=== PATIENT | female | born 1935 | race African-American/Black ===

== ENCOUNTER 2022-07-06 13:11 | Emergency (ER) | payer MEDICARE, MEDICAID ==
[~2022-07-06] VITALS: Ht 170.2 cm; Wt 92.0 kg
[2022-07-06] MEDS ORDERED: MORPHINE SULFATE 4 MG/ML CPJ (NOT FOR IM USE) IV NR (16:57)
[2022-07-06] MEDS ORDERED: ONDANSETRON HCL 4MG/2ML INJ IV STA (16:57)
[2022-07-06] MEDS ORDERED: MORPHINE SULFATE 4 MG/ML CPJ (NOT FOR IM USE) IV STA (16:57)
[2022-07-06] MEDS ORDERED: ONDANSETRON HCL 4MG/2ML INJ IV NR (16:57)
[2022-07-06] MEDS ORDERED: SODIUM CHLORIDE 0.9% 1,000 ML IV ONE (17:00)
[2022-07-06 17:22] LABS: CLARITY URINE CLEAR (CLEAR); COLOR URINE YELLOW (YELLOW); KETONES URINE NEGATIVE (NEGATIVE); LEUKOCYTE ESTERASE URINE TRACE (NEGATIVE); NITRITE URINE NEGATIVE (NEGATIVE); OCCULT BLOOD URINE NEGATIVE (NEGATIVE); PROTEIN URINE NEGATIVE (NEGATIVE); SPECIFIC GRAVITY URINE 1.005 (1.005-1.030); UROBILINOGEN URINE 0.2 E.U./dL (0.2-1.0)
[2022-07-06 17:45] LABS: CHLORIDE 97 mEq/L (98-107)
[2022-07-06 18:05] LABS: BASOPHILS % 0.6 % (0.0-2.0); EOSINOPHILS % 0.2 % (0.0-5.0); HEMATOCRIT. 38.1 % (36.0-48.0); HEMOGLOBIN. 12.6 g/dL (12.0-16.0); MEAN CORPUSCULAR HEMOGLOBIN 30.2 pg (28.0-32.0); MEAN PLATELET VOLUME 7.5 fl (7.4-10.4); MONOCYTES % 9.8 % (2.0-8.0); NEUTROPHILS % 62.4 % (40.0-76.0); PLATELET 213 x1000/uL (130-400); RED BLOOD CELL COUNT 4.19 mill/uL (4.2-5.4); RED CELL DISTRIBUTION WIDTH 13.4 % (11.6-14.6)
[2022-07-06] MEDS ORDERED: CEFTRIAXONE 1 G PREMIX 50 ML IV ONE (18:15)
[2022-07-06] MEDS ORDERED: HYDRALAZINE 20MG/ML VIAL IV ONE (18:15)
[2022-07-06] MEDS ORDERED: TOPUD MT (19:33)
[2022-07-06] MEDS ORDERED: CEPH500C2 MT (19:33)
[2022-07-06 20:00] VITALS: BP 131/59
== END 2022-07-06 20:50 | disposition home or self-care (01) ==
LOC: ER 13:30
DX: R10.31 Right lower quadrant pain (principal); N39.0 Urinary tract infection, site not specified; R11.0 Nausea; I10 Essential (primary) hypertension; Z90.710 Acquired absence of both cervix and uterus
CPT/HCPCS: 36415; 71045; 74176; 80053; 81003; 83690; 84484; 85025; 93005; 96365; 96375; 99285; J0360; J0696; J2405; J7030

== ENCOUNTER 2022-07-27 09:58 | Emergency (ER) | payer MEDICARE, MEDICAID ==
[~2022-07-27] VITALS: Ht 167.6 cm; Wt 90.0 kg
[~2022-07-27 09:58] MED LIST: CEPH500C2 MT; TOPUD MT
[2022-07-27] MEDS ORDERED: VISCOUS LIDOCAINE 2% 15 ML UDC MM STA (10:42)
[2022-07-27] MEDS ORDERED: ONDANSETRON HCL 4MG TABLET PO ONE (10:45)
[2022-07-27] MEDS ORDERED: MAGNESIUM/ALUMINUM HYDROXIDE/SIMETHICONE 30ML UDC PO ONE (10:45)
[2022-07-27] MEDS ORDERED: FAMOTIDINE 20MG TABLET PO ONE (10:45)
[2022-07-27 11:32] LABS: CLARITY URINE CLEAR (CLEAR); COLOR URINE YELLOW (YELLOW); KETONES URINE NEGATIVE (NEGATIVE); LEUKOCYTE ESTERASE URINE NEGATIVE (NEGATIVE); NITRITE URINE NEGATIVE (NEGATIVE); OCCULT BLOOD URINE NEGATIVE (NEGATIVE); PROTEIN URINE NEGATIVE (NEGATIVE); SPECIFIC GRAVITY URINE 1.005 (1.005-1.030); UROBILINOGEN URINE 0.2 E.U./dL (0.2-1.0)
[2022-07-27 12:24] LABS: EOSINOPHILS % 0.4 % (0.0-5.0); HEMATOCRIT. 38.2 % (36.0-48.0); HEMOGLOBIN. 12.8 g/dL (12.0-16.0); MEAN CORPUSCULAR HEMOGLOBIN 30.1 pg (28.0-32.0); MEAN CORPUSCULAR VOLUME 90.1 fL (81.0-99.0); MONOCYTES % 11.3 % (2.0-8.0); NEUTROPHILS % 63.3 % (40.0-76.0); RED BLOOD CELL COUNT 4.24 mill/uL (4.2-5.4); RED CELL DISTRIBUTION WIDTH 13.8 % (11.6-14.6)
[2022-07-27 12:38] LABS: CHLORIDE 104 mEq/L (98-107)
[2022-07-27] MEDS ORDERED: ONDANSETRON HCL 4MG TABLET PO NR (12:45)
[2022-07-27] MEDS ORDERED: MAGNESIUM/ALUMINUM HYDROXIDE/SIMETHICONE 30ML UDC PO NR (12:45)
[2022-07-27] MEDS ORDERED: VISCOUS LIDOCAINE 2% 15 ML UDC MM NR (12:45)
[2022-07-27] MEDS ORDERED: FAMOTIDINE 20MG TABLET PO NR (12:45)
[2022-07-27] MEDS ORDERED: FEO PR (16:28)
[2022-07-27] MEDS ORDERED: LACT1CAP78 MT (16:28)
[2022-07-27] MEDS ORDERED: FAMO40TA70 MT (16:28)
[2022-07-27] MEDS ORDERED: MAG-55 MT (16:28)
[2022-07-27] MEDS ORDERED: POLY119P2 MT (16:28)
[2022-07-27 16:35] VITALS: BP 145/58
== END 2022-07-27 17:02 | disposition home or self-care (01) ==
LOC: ER 10:49
DX: K21.9 Gastro-esophageal reflux disease without esophagitis (principal); K59.00 Constipation, unspecified; I10 Essential (primary) hypertension; Z90.710 Acquired absence of both cervix and uterus; Z79.899 Other long term (current) drug therapy
CPT/HCPCS: 36415; 74176; 80053; 81003; 83690; 85025; 93005; 99285; Q0162

== ENCOUNTER 2022-09-16 17:56 | Inpatient (IN) | payer MEDICARE, MEDICAID ==
[~2022-09-16] VITALS: Ht 167.6 cm; Wt 88.9 kg
[~2022-09-16 17:56] MED LIST changes: +FAMO40TA70 MT; +FEO PR; +LACT1CAP78 MT; +MAG-55 MT; +POLY119P2 MT
[2022-09-16] MEDS ORDERED: METOPROLOL TARTRATE 5MG/5ML VIAL IV SCH (19:00)
[2022-09-16 19:08] LABS: BASOPHILS % 0.5 % (0.0-2.0); EOSINOPHILS % 0.5 % (0.0-5.0); HEMATOCRIT. 34.8 % (36.0-48.0); HEMOGLOBIN. 11.5 g/dL (12.0-16.0); LYMPHOCYTES % 29.6 % (20.0-50.0); MEAN CORPUSCULAR VOLUME 90.6 fL (81.0-99.0); MEAN PLATELET VOLUME 7.5 fl (7.4-10.4); MONOCYTES % 5.8 % (2.0-8.0); NEUTROPHILS % 63.6 % (40.0-76.0); PLATELET 240 x1000/uL (130-400); RED BLOOD CELL COUNT 3.84 mill/uL (4.2-5.4)
[2022-09-16] MEDS ORDERED: GUAIFENESIN 200MG/10ML SUGAR FREE UDC PO PRN (22:45)
[2022-09-16] MEDS ORDERED: IPRATROPIUM/ALBUTEROL 0.5-3(2.5)MG/3ML NEB HHN PRN (22:45)
[2022-09-16] MEDS ORDERED: ACETAMINOPHEN 325MG TABLET PO PRN (22:45)
[2022-09-16] MEDS ORDERED: ACETAMINOPHEN 650MG SUPP PR PRN ×2 (22:45)
[2022-09-17] MEDS ORDERED: ROSU20TA2 (00:35)
[2022-09-17] MEDS ORDERED: ALLO100T PO (00:35)
[2022-09-17] MEDS ORDERED: OLME40TA18 PO (00:35)
[2022-09-17] MEDS ORDERED: AMLO5TAB88 PO (00:35)
[2022-09-17] MEDS: HYDROCODONE/ACETAMINOPHEN 5/325MG TABLET PO PRN ×3 (00:40→12:42)
[2022-09-17 00:45] VITALS: BP 143/70
[2022-09-17 04:00] VITALS: BP 128/74
[2022-09-17 07:43] LABS: BASOPHILS % 0.5 % (0.0-2.0); EOSINOPHILS % 0.4 % (0.0-5.0); HEMATOCRIT. 34.2 % (36.0-48.0); HEMOGLOBIN. 11.3 g/dL (12.0-16.0); LYMPHOCYTES % 31.8 % (20.0-50.0); MEAN CORPUSCULAR HEMOGLOBIN 30.3 pg (28.0-32.0); MEAN CORPUSCULAR VOLUME 91.7 fL (81.0-99.0); MEAN PLATELET VOLUME 7.7 fl (7.4-10.4); MONOCYTES % 10.5 % (2.0-8.0); NEUTROPHILS % 56.8 % (40.0-76.0); PLATELET 232 x1000/uL (130-400); RED BLOOD CELL COUNT 3.73 mill/uL (4.2-5.4); RED CELL DISTRIBUTION WIDTH 16.2 % (11.6-14.6)
[2022-09-17] MEDS ORDERED: PNEUMOCOCCAL 23-VAL P-SAC VAC 0.5 ML IM ONE (10:00)
[2022-09-17 12:00] VITALS: BP 130/62
[2022-09-17 16:00] VITALS: BP 125/73
[2022-09-17] MEDS ORDERED: ENOXAPARIN 100MG/ML SYR SUBCUT NR (17:00)
[2022-09-17] MEDS: ONDANSETRON HCL 4MG/2ML INJ IV PRN (17:03)
[2022-09-17] MEDS ORDERED: NALOXONE HCL 0.4MG/ML VIAL IV PRN (19:30)
[2022-09-17 20:00] VITALS: BP 86/44
[2022-09-17 22:09] LABS: INR 1.3; PROTHROMBIN TIME 13.6 sec (9.6-11.0)
[2022-09-18] VITALS (45 sets, daily range): BP systolic 74–160; BP diastolic 36–76
[2022-09-18 01:01] LABS: HDL CHOLESTEROL 49 mg/dL (40-59); LDL CHOLESTEROL 83 mg/dL (5-100)
[2022-09-18 06:14] LABS: CHLORIDE 107 mEq/L (98-107)
[2022-09-18 06:46] LABS: BASOPHILS % 0.2 % (0.0-2.0); HEMATOCRIT. 36.6 % (36.0-48.0); HEMOGLOBIN. 11.7 g/dL (12.0-16.0); LYMPHOCYTES % 14.5 % (20.0-50.0); MEAN CORPUSCULAR HEMOGLOBIN 29.9 pg (28.0-32.0); MEAN CORPUSCULAR VOLUME 93.5 fL (81.0-99.0); MEAN PLATELET VOLUME 7.7 fl (7.4-10.4); MONOCYTES % 7.4 % (2.0-8.0); NEUTROPHILS % 77.9 % (40.0-76.0); PLATELET 180 x1000/uL (130-400); RED BLOOD CELL COUNT 3.91 mill/uL (4.2-5.4); RED CELL DISTRIBUTION WIDTH 17.1 % (11.6-14.6)
[2022-09-18 09:45] LABS: CHLORIDE 106 mEq/L (98-107)
[2022-09-18] MEDS ORDERED: MAGNESIUM HYDROXIDE 400MG/5ML 30ML UDC PO NR (10:30)
[2022-09-18 10:37] LABS: CREATINE KINASE 75 IU/L (26-192); HDL CHOLESTEROL 46 mg/dL (40-59); LDL CHOLESTEROL 93 mg/dL (5-100)
[2022-09-18] MEDS ORDERED: ENOXAPARIN 100MG/ML SYR SUBCUT SCH (11:00)
[2022-09-18] MEDS: HYDROCODONE/ACETAMINOPHEN 5/325MG TABLET PO PRN (12:08)
[2022-09-18] MEDS ORDERED: PHENYLEPHRINE 100 MG in DEXT 5% WATER 240 ML IV PRN (12:15)
[2022-09-18] MEDS ORDERED: IOHEXOL-350 100 ML BOTTLE ONE (12:27)
[2022-09-18] MEDS ORDERED: ALTEPLASE 100MG/VIAL IV NR (15:00)
[2022-09-18] MEDS: DOPAMINE 400MG/250ML PREMIX 250 ML IV PRN (15:31)
[2022-09-18 20:22] LABS: BG BASE EXCESS -3.1 mmol/L (-2.0-2.0); BG CARBOXYHEMOGLOBIN 0.3 % (0.5-1.5); BG DEOXYHEMOGLOBIN 9.5 % (0.0-5.0); BG FRACTION INSPIRED OXYGEN 100; BG HCO3 ACT 22.2 mmol/L (22.0-26.0); BG METHEMOGLOBIN 0.3 % (0.0-1.5); BG OXYGEN SATURATION 90.4 % (92.0-98.5); BG OXYHEMOGLOBIN 89.9 % (94.0-97.0); BG PH 7.352 (7.350-7.450); BG PO2 65.6 mmHg (75.0-100.0); BG SAMPLE SITE RIGHT RADIAL; BG TOTAL HEMOGLOBIN 12.2 g/dL (12.0-18.0); BG VENT MODE MASK - NRB
[2022-09-19] VITALS (97 sets, daily range): BP systolic 47–134; BP diastolic 24–81
[2022-09-19 06:26] LABS: BASOPHILS % 0.2 % (0.0-2.0); HEMATOCRIT. 36.1 % (36.0-48.0); HEMOGLOBIN. 11.5 g/dL (12.0-16.0); LYMPHOCYTES % 12.9 % (20.0-50.0); MEAN CORPUSCULAR HEMOGLOBIN 29.9 pg (28.0-32.0); MEAN CORPUSCULAR VOLUME 93.8 fL (81.0-99.0); MEAN PLATELET VOLUME 7.7 fl (7.4-10.4); MONOCYTES % 12.9 % (2.0-8.0); PLATELET 205 x1000/uL (130-400); RED BLOOD CELL COUNT 3.85 mill/uL (4.2-5.4); RED CELL DISTRIBUTION WIDTH 17.3 % (11.6-14.6)
[2022-09-19] MEDS: DOPAMINE 400MG/250ML PREMIX 250 ML IV PRN (09:04)
[2022-09-19] MEDS ORDERED: HEPARIN 25,000 UNITS PREMIX 250 ML IV SCH (10:30)
[2022-09-19] MEDS ORDERED: HEPARIN 80 UNITS/KG BOLUS IV SCH (11:15)
[2022-09-19] MEDS ORDERED: HEPARIN BOLUS PRN aPTT 37-44 IV (11:15)
[2022-09-19] MEDS: HEPARIN 25,000 UNITS PREMIX 250 ML IV SCH (15:19)
[2022-09-19] MEDS: HYDROCODONE/ACETAMINOPHEN 5/325MG TABLET PO PRN (17:32)
[2022-09-19] MEDS ORDERED: HEPARIN 5000 UNITS/ML VIAL IV SCH (19:30)
[2022-09-19] MEDS ORDERED: HEPARIN 5000 UNITS/ML VIAL IV PRN ×2 (19:30)
[2022-09-19] MEDS: HEPARIN BOLUS PRN aPTT <36 IV (20:37)
[2022-09-20] VITALS (91 sets, daily range): BP systolic 66–141; BP diastolic 28–77
[2022-09-20 03:27] LABS: BASOPHILS % 0.2 % (0.0-2.0); EOSINOPHILS % 0.4 % (0.0-5.0); HEMATOCRIT. 32.9 % (36.0-48.0); HEMOGLOBIN. 10.8 g/dL (12.0-16.0); LYMPHOCYTES % 13.2 % (20.0-50.0); MEAN CORPUSCULAR HEMOGLOBIN 29.8 pg (28.0-32.0); MEAN CORPUSCULAR VOLUME 90.6 fL (81.0-99.0); MEAN PLATELET VOLUME 7.8 fl (7.4-10.4); MONOCYTES % 9.7 % (2.0-8.0); NEUTROPHILS % 76.5 % (40.0-76.0); PLATELET 197 x1000/uL (130-400); RED BLOOD CELL COUNT 3.63 mill/uL (4.2-5.4); RED CELL DISTRIBUTION WIDTH 16.9 % (11.6-14.6)
[2022-09-20] MEDS: DOPAMINE 400MG/250ML PREMIX 250 ML IV PRN ×2 (03:36→17:20)
[2022-09-20 04:06] LABS: CHLORIDE 102 mEq/L (98-107)
[2022-09-20 04:20] LABS: CREATINE KINASE 498 IU/L (26-192)
[2022-09-20] MEDS: DOCUSATE SODIUM 100MG CAPSULE PO PRN ×2 (09:07→17:20)
[2022-09-20] MEDS: HYDROCODONE/ACETAMINOPHEN 5/325MG TABLET PO PRN ×3 (09:08→22:18)
[2022-09-20 09:33] LABS: CLARITY URINE CLOUDY (CLEAR); COLOR URINE YELLOW (YELLOW); KETONES URINE NEGATIVE (NEGATIVE); LEUKOCYTE ESTERASE URINE TRACE (NEGATIVE); NITRITE URINE NEGATIVE (NEGATIVE); OCCULT BLOOD URINE 3+ (NEGATIVE); PROTEIN URINE TRACE (NEGATIVE); SPECIFIC GRAVITY URINE 1.012 (1.005-1.030); UROBILINOGEN URINE 0.2 E.U./dL (0.2-1.0)
[2022-09-20] MEDS: HEPARIN 25,000 UNITS PREMIX 250 ML IV SCH (10:42)
[2022-09-20 11:18] LABS: BG BASE EXCESS -5.9 mmol/L (-2.0-2.0); BG DEOXYHEMOGLOBIN 6.7 % (0.0-5.0); BG FRACTION INSPIRED OXYGEN 100; BG HCO3 ACT 18.6 mmol/L (22.0-26.0); BG METHEMOGLOBIN 0.2 % (0.0-1.5); BG OXYGEN SATURATION 93.3 % (92.0-98.5); BG OXYHEMOGLOBIN 93.1 % (94.0-97.0); BG PCO2 33.4 mmHg (35.0-45.0); BG PH 7.364 (7.350-7.450); BG PO2 72.5 mmHg (75.0-100.0); BG SAMPLE SITE LEFT BRACHIAL; BG TOTAL HEMOGLOBIN 11.2 g/dL (12.0-18.0); BG VENT MODE MASK - NRB
[2022-09-21] VITALS (98 sets, daily range): BP systolic 82–149; BP diastolic 30–90
[2022-09-21] MEDS: ACETAMINOPHEN 325MG TABLET PO PRN (00:51)
[2022-09-21] MEDS: DOPAMINE 400MG/250ML PREMIX 250 ML IV PRN ×2 (05:30→17:12)
[2022-09-21 05:33] LABS: HEMATOCRIT. 34.1 % (36.0-48.0); HEMOGLOBIN. 11.4 g/dL (12.0-16.0); MEAN CORPUSCULAR HEMOGLOBIN 30.1 pg (28.0-32.0); MEAN CORPUSCULAR VOLUME 90.4 fL (81.0-99.0); MEAN PLATELET VOLUME 8.1 fl (7.4-10.4); PLATELET 233 x1000/uL (130-400); RED BLOOD CELL COUNT 3.77 mill/uL (4.2-5.4); RED CELL DISTRIBUTION WIDTH 16.3 % (11.6-14.6)
[2022-09-21 06:17] LABS: PHOSPHORUS 3.9 mg/dL (2.5-4.9)
[2022-09-21] MEDS: MORPHINE SULFATE 4 MG/ML CPJ (NOT FOR IM USE) IV PRN (08:37)
[2022-09-21] MEDS: HEPARIN 25,000 UNITS PREMIX 250 ML IV SCH (08:42)
[2022-09-21 09:25] LABS: PLATELET ESTIMATE NORMAL
[2022-09-22] VITALS (98 sets, daily range): BP systolic 63–146; BP diastolic 26–78
[2022-09-22 04:55] LABS: HEMOGLOBIN. 10.6 g/dL (12.0-16.0); MEAN CORPUSCULAR HEMOGLOBIN 30.2 pg (28.0-32.0); MEAN CORPUSCULAR VOLUME 91.2 fL (81.0-99.0); MEAN PLATELET VOLUME 7.5 fl (7.4-10.4); PLATELET 186 x1000/uL (130-400); RED BLOOD CELL COUNT 3.51 mill/uL (4.2-5.4); RED CELL DISTRIBUTION WIDTH 16.5 % (11.6-14.6)
[2022-09-22] MEDS: HEPARIN 25,000 UNITS PREMIX 250 ML IV SCH (04:58)
[2022-09-22 05:10] LABS: PHOSPHORUS 4.2 mg/dL (2.5-4.9)
[2022-09-22] MEDS: DOPAMINE 400MG/250ML PREMIX 250 ML IV PRN ×2 (05:12→17:37)
[2022-09-22] MEDS: HEPARIN BOLUS PRN aPTT <36 IV (07:07)
[2022-09-22] MEDS: MORPHINE SULFATE 4 MG/ML CPJ (NOT FOR IM USE) IV PRN (09:00)
[2022-09-22 10:13] LABS: PLATELET ESTIMATE NORMAL
[2022-09-22] MEDS: MIDODRINE HCL 5MG TABLET PO SCH ×3 (10:43→17:36)
[2022-09-23] VITALS (100 sets, daily range): BP systolic 56–154; BP diastolic 22–73
[2022-09-23] MEDS: HEPARIN 25,000 UNITS PREMIX 250 ML IV SCH (03:07)
[2022-09-23 04:38] LABS: HEMATOCRIT. 27.5 % (36.0-48.0); HEMOGLOBIN. 9.1 g/dL (12.0-16.0); MEAN CORPUSCULAR HEMOGLOBIN 29.9 pg (28.0-32.0); MEAN CORPUSCULAR VOLUME 90.1 fL (81.0-99.0); MEAN PLATELET VOLUME 7.5 fl (7.4-10.4); PLATELET 183 x1000/uL (130-400); RED BLOOD CELL COUNT 3.06 mill/uL (4.2-5.4); RED CELL DISTRIBUTION WIDTH 16.3 % (11.6-14.6)
[2022-09-23 05:25] LABS: PHOSPHORUS 3.9 mg/dL (2.5-4.9)
[2022-09-23] MEDS: DOPAMINE 400MG/250ML PREMIX 250 ML IV PRN (06:54)
[2022-09-23] MEDS: MIDODRINE HCL 5MG TABLET PO SCH ×3 (08:45→17:10)
[2022-09-23] MEDS: DILTIAZEM HCL 60MG TABLET PO SCH ×3 (10:25→17:03)
[2022-09-23 10:55] LABS: PLATELET ESTIMATE NORMAL
[2022-09-23] MEDS ORDERED: ENOXAPARIN 80MG/0.8ML SYR SUBCUT SCH ×2 (13:00→15:00)
[2022-09-23] MEDS: HEPARIN 25,000 UNITS PREMIX 250 ML IV PRN ×2 (13:28→17:34)
[2022-09-23] MEDS ORDERED: HEPARIN BOLUS PRN aPTT <36 IV (13:30)
[2022-09-23] MEDS ORDERED: HEPARIN BOLUS PRN aPTT 37-44 IV (13:30)
[2022-09-23] MEDS: DOCUSATE SODIUM 100MG CAPSULE PO PRN (17:10)
[2022-09-23] MEDS: ACETAMINOPHEN 325MG TABLET PO PRN (17:10)
[2022-09-23] MEDS: MAGNESIUM/ALUMINUM HYDROXIDE/SIMETHICONE 30ML UDC PO PRN (17:10)
[2022-09-23] MEDS: PHENYLEPHRINE 100 MG in DEXT 5% WATER 240 ML IV PRN ×2 (17:34→20:19)
[2022-09-24] VITALS (93 sets, daily range): BP systolic 41–158; BP diastolic 14–82
[2022-09-24] MEDS: DILTIAZEM HCL 60MG TABLET PO SCH ×2 (00:26→05:44)
[2022-09-24] MEDS: ACETAMINOPHEN 325MG TABLET PO PRN (01:05)
[2022-09-24 05:16] LABS: BASOPHILS % 0.3 % (0.0-2.0); EOSINOPHILS % 1.6 % (0.0-5.0); HEMATOCRIT. 24.3 % (36.0-48.0); HEMOGLOBIN. 8.1 g/dL (12.0-16.0); LYMPHOCYTES % 14.5 % (20.0-50.0); MEAN CORPUSCULAR HEMOGLOBIN 29.8 pg (28.0-32.0); MEAN CORPUSCULAR VOLUME 89.3 fL (81.0-99.0); MEAN PLATELET VOLUME 7.8 fl (7.4-10.4); MONOCYTES % 13.5 % (2.0-8.0); NEUTROPHILS % 70.1 % (40.0-76.0); PLATELET 271 x1000/uL (130-400); RED BLOOD CELL COUNT 2.72 mill/uL (4.2-5.4)
[2022-09-24 05:30] LABS: PHOSPHORUS 3.9 mg/dL (2.5-4.9)
[2022-09-24] MEDS: MIDODRINE HCL 5MG TABLET PO SCH ×4 (08:38→18:30)
[2022-09-24] MEDS: HEPARIN 25,000 UNITS PREMIX 250 ML IV PRN (08:45)
[2022-09-24] MEDS ORDERED: MAGNESIUM 2 G PREMIX 50 ML IV NR (09:00)
[2022-09-24] MEDS: NOREPINEPHRINE 32 MG in DEXT 5% WATER 218 ML IV PRN (09:13)
[2022-09-24] MEDS ORDERED: CEFTRIAXONE 1 G PREMIX 50 ML IV SCH (09:15)
[2022-09-24] MEDS: CEFTRIAXONE 1,000 MG in DEXTROSE 5% WATER 50 ML IV SCH (10:45)
[2022-09-24] MEDS ORDERED: IOHEXOL-350 100 ML BOTTLE ONE (12:21)
[2022-09-25] VITALS (92 sets, daily range): BP systolic 85–164; BP diastolic 32–113
[2022-09-25] MEDS: HEPARIN 25,000 UNITS PREMIX 250 ML IV PRN (01:04)
[2022-09-25] MEDS: ACETAMINOPHEN 325MG TABLET PO PRN ×2 (02:20→21:39)
[2022-09-25] MEDS: MORPHINE SULFATE 2 MG/ML CPJ (NOT FOR IM USE) IV PRN (04:22)
[2022-09-25 06:09] LABS: BASOPHILS % 0.2 % (0.0-2.0); EOSINOPHILS % 2.2 % (0.0-5.0); HEMATOCRIT. 24.5 % (36.0-48.0); HEMOGLOBIN. 8.4 g/dL (12.0-16.0); LYMPHOCYTES % 10.2 % (20.0-50.0); MEAN CORPUSCULAR HEMOGLOBIN 30.3 pg (28.0-32.0); MEAN CORPUSCULAR VOLUME 88.5 fL (81.0-99.0); MEAN PLATELET VOLUME 7.9 fl (7.4-10.4); MONOCYTES % 13.8 % (2.0-8.0); NEUTROPHILS % 73.6 % (40.0-76.0); PLATELET 237 x1000/uL (130-400); RED BLOOD CELL COUNT 2.77 mill/uL (4.2-5.4); RED CELL DISTRIBUTION WIDTH 15.9 % (11.6-14.6)
[2022-09-25] MEDS: MIDODRINE HCL 5MG TABLET PO SCH ×3 (08:04→17:33)
[2022-09-25 08:55] LABS: BG BASE EXCESS 0.9 mmol/L (-2.0-2.0); BG CARBOXYHEMOGLOBIN 0.3 % (0.5-1.5); BG DEOXYHEMOGLOBIN 2.5 % (0.0-5.0); BG FRACTION INSPIRED OXYGEN 100; BG METHEMOGLOBIN 0.3 % (0.0-1.5); BG OXYGEN SATURATION 97.5 % (92.0-98.5); BG OXYHEMOGLOBIN 96.9 % (94.0-97.0); BG PCO2 37.8 mmHg (35.0-45.0); BG PH 7.438 (7.350-7.450); BG PO2 104.2 mmHg (75.0-100.0); BG SAMPLE SITE LEFT RADIAL; BG TOTAL HEMOGLOBIN 9.3 g/dL (12.0-18.0); BG VENT MODE MASK - NRB
[2022-09-25] MEDS: CEFTRIAXONE 1,000 MG in DEXTROSE 5% WATER 50 ML IV SCH (09:00)
[2022-09-25 12:52] LABS: INR 1.1; PROTHROMBIN TIME 11.3 sec (9.6-11.0)
[2022-09-25] MEDS: MAGNESIUM/ALUMINUM HYDROXIDE/SIMETHICONE 30ML UDC PO PRN (20:55)
[2022-09-26] VITALS (92 sets, daily range): BP systolic 90–152; BP diastolic 23–69
[2022-09-26] MEDS: ONDANSETRON HCL 4MG/2ML INJ IV PRN (00:42)
[2022-09-26] MEDS: MORPHINE SULFATE 2 MG/ML CPJ (NOT FOR IM USE) IV PRN ×2 (01:05→22:18)
[2022-09-26 05:00] LABS: BASOPHILS % 0.3 % (0.0-2.0); EOSINOPHILS % 2.5 % (0.0-5.0); HEMATOCRIT. 26.6 % (36.0-48.0); HEMOGLOBIN. 8.7 g/dL (12.0-16.0); LYMPHOCYTES % 12.2 % (20.0-50.0); MEAN CORPUSCULAR HEMOGLOBIN 29.9 pg (28.0-32.0); MEAN PLATELET VOLUME 7.9 fl (7.4-10.4); MONOCYTES % 13.2 % (2.0-8.0); NEUTROPHILS % 71.8 % (40.0-76.0); PLATELET 138 x1000/uL (130-400); RED BLOOD CELL COUNT 2.92 mill/uL (4.2-5.4); RED CELL DISTRIBUTION WIDTH 16.5 % (11.6-14.6)
[2022-09-26 05:05] LABS: CHLORIDE 101 mEq/L (98-107)
[2022-09-26] MEDS: POLYETHYLENE GLYCOL 3350 (17GM) 1 DOSE PACK PO SCH (08:00)
[2022-09-26] MEDS: MIDODRINE HCL 5MG TABLET PO SCH ×3 (08:01→16:58)
[2022-09-26] MEDS ORDERED: FUROSEMIDE 40MG/4ML VIAL IVP NR (09:00)
[2022-09-26] MEDS: CEFTRIAXONE 1,000 MG in DEXTROSE 5% WATER 50 ML IV SCH (09:16)
[2022-09-26] MEDS ORDERED: MAGNESIUM 2 G PREMIX 50 ML IV NR (11:00)
[2022-09-26] MEDS: ACETAMINOPHEN 325MG TABLET PO PRN (13:20)
[2022-09-26] MEDS: HEPARIN 25,000 UNITS PREMIX 250 ML IV PRN (18:15)
[2022-09-27] VITALS (99 sets, daily range): BP systolic 36–172; BP diastolic 23–100
[2022-09-27] MEDS ORDERED: ENOXAPARIN 100MG/ML SYR SUBCUT NR (01:15)
[2022-09-27 01:38] LABS: INR 1.1; PROTHROMBIN TIME 11.7 sec (9.6-11.0)
[2022-09-27] MEDS: ACETAMINOPHEN 325MG TABLET PO PRN ×3 (03:32→17:07)
[2022-09-27 04:43] LABS: CHLORIDE 100 mEq/L (98-107)
[2022-09-27 04:48] LABS: PHOSPHORUS 2.8 mg/dL (2.5-4.9)
[2022-09-27] MEDS: MIDODRINE HCL 5MG TABLET PO SCH ×3 (08:53→16:31)
[2022-09-27] MEDS: POLYETHYLENE GLYCOL 3350 (17GM) 1 DOSE PACK PO SCH (08:53)
[2022-09-27] MEDS: CEFTRIAXONE 1,000 MG in DEXTROSE 5% WATER 50 ML IV SCH (10:24)
[2022-09-27 11:11] LABS: BASOPHILS % 0.3 % (0.0-2.0); EOSINOPHILS % 1.5 % (0.0-5.0); HEMATOCRIT. 26.9 % (36.0-48.0); HEMOGLOBIN. 8.9 g/dL (12.0-16.0); LYMPHOCYTES % 11.5 % (20.0-50.0); MEAN CORPUSCULAR HEMOGLOBIN 29.6 pg (28.0-32.0); MEAN CORPUSCULAR VOLUME 89.3 fL (81.0-99.0); MONOCYTES % 11.5 % (2.0-8.0); NEUTROPHILS % 75.2 % (40.0-76.0); RED BLOOD CELL COUNT 3.01 mill/uL (4.2-5.4); RED CELL DISTRIBUTION WIDTH 16.1 % (11.6-14.6)
[2022-09-27] MEDS: NOREPINEPHRINE 32 MG in DEXT 5% WATER 218 ML IV PRN (11:30)
[2022-09-27 11:38] LABS: PLATELET ESTIMATE MARKEDLY DECREASED
[2022-09-27 11:40] LABS: PLATELET 40 x1000/uL (130-400)
[2022-09-27] MEDS ORDERED: ENOXAPARIN 100MG/ML SYR SUBCUT SCH (13:30)
[2022-09-27] MEDS: PHENYLEPHRINE 100 MG in DEXT 5% WATER 240 ML IV PRN ×2 (14:34→20:39)
[2022-09-27] MEDS ORDERED: SODIUM CHLORIDE 0.9% 500 ML IV ONE (15:00)
[2022-09-27] MEDS: ONDANSETRON HCL 4MG/2ML INJ IV PRN (16:31)
[2022-09-28] VITALS (56 sets, daily range): BP systolic 43–181; BP diastolic 12–113
[2022-09-28] MEDS: ACETAMINOPHEN 325MG TABLET PO PRN (02:46)
[2022-09-28] MEDS: ONDANSETRON HCL 4MG/2ML INJ IV PRN (02:48)
[2022-09-28] MEDS: PHENYLEPHRINE 100 MG in DEXT 5% WATER 240 ML IV PRN ×2 (03:06→08:39)
[2022-09-28] MEDS: NOREPINEPHRINE 32 MG in DEXT 5% WATER 218 ML IV PRN ×2 (04:46→13:22)
[2022-09-28 05:28] LABS: HEMATOCRIT 32.2 % (36.0-48.0); HEMOGLOBIN 10.2 g/dL (12.0-16.0); RED BLOOD CELL COUNT 3.54 mill/uL (4.2-5.4); RED CELL DISTRIBUTION WIDTH 16.7 % (11.6-14.6)
[2022-09-28] MEDS ORDERED: ADENOSINE 3 MG/ML 2ML VIAL IV NR ×2 (05:45→06:00)
[2022-09-28 05:56] LABS: PHOSPHORUS 5.2 mg/dL (2.5-4.9)
[2022-09-28 06:09] LABS: PLATELET 45 x1000/uL (130-400)
[2022-09-28] MEDS ORDERED: SODIUM CHLORIDE 0.9% 1,000 ML IV SCH (06:15)
[2022-09-28] MEDS ORDERED: VASOPRESSIN 20 UNIT in SODIUM CHLORIDE 0.9% 99 ML IV PRN (06:15)
[2022-09-28 08:27] LABS: BG BASE EXCESS -6.1 mmol/L (-2.0-2.0); BG CARBOXYHEMOGLOBIN 0.3 % (0.5-1.5); BG DEOXYHEMOGLOBIN 14.4 % (0.0-5.0); BG FRACTION INSPIRED OXYGEN 100; BG HCO3 ACT 19.3 mmol/L (22.0-26.0); BG METHEMOGLOBIN 0.4 % (0.0-1.5); BG OXYGEN SATURATION 85.5 % (92.0-98.5); BG OXYHEMOGLOBIN 84.9 % (94.0-97.0); BG PCO2 37.4 mmHg (35.0-45.0); BG PO2 58.5 mmHg (75.0-100.0); BG SAMPLE SITE RIGHT RADIAL; BG TOTAL HEMOGLOBIN 10.2 g/dL (12.0-18.0); BG VENT MODE MASK - BIPAP
[2022-09-28] MEDS ORDERED: HYDROCORTISONE SOD SUCCINATE 100 MG/2 ML VIAL IV NR (09:00)
[2022-09-28] MEDS: POLYETHYLENE GLYCOL 3350 (17GM) 1 DOSE PACK PO SCH (09:06)
[2022-09-28] MEDS: MIDODRINE HCL 5MG TABLET PO SCH ×2 (09:06→13:23)
[2022-09-28] MEDS: CEFTRIAXONE 1,000 MG in DEXTROSE 5% WATER 50 ML IV SCH (10:00)
[2022-09-28] MEDS ORDERED: AMIODARONE HCL 900 MG in DEXT 5% WATER 482 ML IV PRN (10:00)
[2022-09-28] MEDS ORDERED: FENTANYL 2500MCG/250ML PMX 250 ML IV PRN ×3 (10:30→10:46)
[2022-09-28] MEDS ORDERED: MIDAZOLAM HCL 100 MG in SODIUM CHLORIDE 0.9% 80 ML IV PRN (11:00)
[2022-09-28 11:37] LABS: BG BASE EXCESS -23.4 mmol/L (-2.0-2.0); BG CARBOXYHEMOGLOBIN 0.3 % (0.5-1.5); BG DEOXYHEMOGLOBIN 39.2 % (0.0-5.0); BG FRACTION INSPIRED OXYGEN 100; BG HCO3 ACT 10.1 mmol/L (22.0-26.0); BG METHEMOGLOBIN 0.3 % (0.0-1.5); BG OXYGEN SATURATION 60.6 % (92.0-98.5); BG OXYHEMOGLOBIN 60.2 % (94.0-97.0); BG PCO2 64.9 mmHg (35.0-45.0); BG PO2 56.3 mmHg (75.0-100.0); BG SAMPLE SITE RIGHT RADIAL; BG TOTAL HEMOGLOBIN 8.8 g/dL (12.0-18.0); BG VENT MODE VENT - AC
[2022-09-28] MEDS ORDERED: SODIUM BICARBONATE 8.4% 1 MEQ/ML 50ML SYR IV ONE (11:45)
[2022-09-28] MEDS ORDERED: EPINEPHRINE 10 MG in SODIUM CHLORIDE 0.9% 240 ML IV PRN (12:00)
[2022-09-28] MEDS ORDERED: SODIUM BICARBONATE 150 MEQ in DEXTROSE 5% WATER 1,000 ML IV SCH (12:20)
[2022-09-28 14:03] LABS: BG BASE EXCESS -17.2 mmol/L (-2.0-2.0); BG CARBOXYHEMOGLOBIN 0.5 % (0.5-1.5); BG FRACTION INSPIRED OXYGEN 100; BG METHEMOGLOBIN 0.4 % (0.0-1.5); BG OXYGEN SATURATION 82.8 % (92.0-98.5); BG OXYHEMOGLOBIN 82.1 % (94.0-97.0); BG PCO2 44.2 mmHg (35.0-45.0); BG PH 7.052 (7.350-7.450); BG PO2 68.8 mmHg (75.0-100.0); BG SAMPLE SITE LEFT BRACHIAL; BG TOTAL HEMOGLOBIN 7.4 g/dL (12.0-18.0); BG VENT MODE VENT - AC
[2022-09-28] MEDS ORDERED: ENOXAPARIN 100MG/ML SYR SUBCUT SCH (15:00)
[2022-09-29] MEDS ORDERED: ENOXAPARIN 100MG/ML SYR SUBCUT SCH (09:00)
== END 2022-09-28 15:00 | DRG 133 ==
LOC: ER 17:56 → 7WST 23:59 → MICUNO 09-18 14:42 → MICUSO 09-19 18:21
PROVIDERS: ADMIT Family Medicine Adult Medicine; ATTEND Family Medicine Adult Medicine
PROC: 3E03317 Introduction of Other Thrombolytic into Peripheral Vein, Percutaneous Approach (ICD-10-PCS; 2022-09-18)
PROC: 02HV33Z Insertion of Infusion Device into Superior Vena Cava, Percutaneous Approach (ICD-10-PCS; 2022-09-18)
PROC: B548ZZA Ultrasonography of Superior Vena Cava, Guidance (ICD-10-PCS; 2022-09-18)
PROC: 5A0945A Assistance with Respiratory Ventilation, 24-96 Consecutive Hours, High Flow/Velocity Cannula (ICD-10-PCS; 2022-09-21)
PROC: 0W993ZZ Drainage of Right Pleural Cavity, Percutaneous Approach (ICD-10-PCS; 2022-09-25)
PROC: 5A09357 Assistance with Respiratory Ventilation, Less than 24 Consecutive Hours, Continuous Positive Airway Pressure (ICD-10-PCS; 2022-09-27)
PROC: 5A1935Z Respiratory Ventilation, Less than 24 Consecutive Hours (ICD-10-PCS; principal; 2022-09-28)
PROC: 0BH17EZ Insertion of Endotracheal Airway into Trachea, Via Natural or Artificial Opening (ICD-10-PCS; 2022-09-28)
DX: J96.21 Acute and chronic respiratory failure with hypoxia (principal); I26.99 Other pulmonary embolism without acute cor pulmonale; N17.0 Acute kidney failure with tubular necrosis; R57.0 Cardiogenic shock; J18.9 Pneumonia, unspecified organism; E46 Unspecified protein-calorie malnutrition; E87.1 Hypo-osmolality and hyponatremia; I95.9 Hypotension, unspecified; Z20.822 Contact with and (suspected) exposure to COVID-19; I82.413 Acute embolism and thrombosis of femoral vein, bilateral; D64.9 Anemia, unspecified; I10 Essential (primary) hypertension; E78.5 Hyperlipidemia, unspecified; I35.8 Other nonrheumatic aortic valve disorders; I47.1 Supraventricular tachycardia; I48.0 Paroxysmal atrial fibrillation; M10.9 Gout, unspecified; Z68.31 Body mass index [BMI] 31.0-31.9, adult; Z90.710 Acquired absence of both cervix and uterus; Z82.49 Family history of ischemic heart disease and other diseases of the circulatory system; I21.A1 Myocardial infarction type 2
CPT/HCPCS: 31500; 32555; 36415; 36573; 36600; 71045; 71275; 76770; 78580; 80048; 80053; 80061; 81003; 82040; 82375; 82550; 82805; 82962; 83615; 83735; 83880; 84100; 84145; 84443; 84484; 85025; 85027; 85049; 85379; 86022; 87426; 88108; 90732; 93005; 93306; 93308; 93970; 99285; A6261; C1725; J0153; J0696; J1265; J1644; J1650; J1720; J1940; J2270; J2370; J2405; J2997; J3010; J3475; J3490; J7050; J7060; J7070; Q9967; A4315